=== PATIENT | male | born 1945 | race Caucasian/White ===

== ENCOUNTER 2024-06-27 10:08 | Emergency (ER) | payer MEDICARE ==
[2024-06-27 10:16] VITALS: RESP 18
--- NOTE | 2024-06-27 10:42 | XR ---
Left foot. HISTORY: Pain COMPARISON: None TECHNIQUE: 3 views left foot were obtained. FINDINGS: There is no fracture, dislocation, intraosseous or intra-articular abnormality. There is no radiopaqu e foreign body or abnormal soft tissue calcification.. IMPRESSION: No significant abnormality seen. [facility], Workstation: [facility], 06/27/2024 10:40 AM
--- NOTE | 2024-06-27 11:05 | ED ---
Lower Extremity Injury HPI - General Chief Complaint: Extremity Injury, Lower Stated Complaint: left big toe pain Time Seen by Provider: 06/27/24 10:17 Source: patient, RN notes reviewed Mode of arrival: ambulatory Limitations: no limitations - History of Present Illness Initial Comments: 79-year-old male presents emergency department complaint of left first digit toe pain. Patient states that he is a candidate in which he stubbed it, falling on it to get his foot up he states that he feels like he may have broke his toe. He states there are some redness denies any open wounds lacerations no fevers chills no other complaints. - Related Data Previous Rx's Medication Instructions Recorded Indomethacin [Indocin] 50 mg PO TID #30 capsule 06/27/24 Allergies Allergy/AdvReac Type Severity Reaction Status Date / Time No Known Allergies Allergy Verified 06/27/24 10:16 Review of Systems ROS Statement: Those systems with pertinent positive or pertinent negative responses have been documented in the HPI. ROS Other: All systems not noted in ROS Statement are negative. Past Medical History Past Medical History: Diabetes Mellitus History of Any Multi-Drug Resistant Organisms: None Reported Past Surgical History: Heart Catheterization Past Psychological History: No Psychological Hx Reported Smoking Status: Never smoker Past Alcohol Use History: None Reported Past Drug Use History: None Reported General Exam Limitations: no limitations General appearance: alert, in no apparent distress Head exam: Present: atraumatic, normocephalic, normal inspection Eye exam: Present: normal appearance, PERRL, EOMI. Absent: scleral icterus, conjunctival injection, periorbital swelling Respiratory exam: Present: normal lung sounds bilaterally. Absent: respiratory distress, wheezes, rales, rhonchi, stridor Cardiovascular Exam: Present: regular rate, normal rhythm, normal heart sounds. Absent: systolic murmur, diastolic murmur, rubs, gallop, clicks Extremities exam: Present: other (Left foot first digit there is mild tenderness from the MTP interphalangeal joint with erythema without open lesions or sores) Course Vital Signs 06/27/24 10:13 Temperature 97.8 F Pulse Rate 60 Respiratory 18 Rate Blood Pressure 136/65 O2 Sat by Pulse 94 L Oximetry Medical Decision Making - Medical Decision Making Was pt. sent in by a medical professional or institution (, PA, DUCT LAYER HELPER, urgent care, hospital, or penitentiary...) When possible be specific @ -No Did you speak to anyone other than the patient for history (EMS, parent, family, police, friend...)? What history was obtained from this source @ -No Did you review nursing and triage notes (agree or disagree)? Why? @ -I reviewed and agree with nursing and triage notes Were old charts reviewed (outside hosp., previous admission, EMS record, old EKG, old radiological studies, urgent care reports/EKG's, penitentiary records)? Report findings @ -No old charts were reviewed Differential Diagnosis (chest pain, altered mental status, abdominal pain women, abdominal pain men, vaginal bleeding, weakness, fever, dyspnea, syncope, headache, dizziness, GI bleed, back pain, seizure, CVA, palpatations, mental health, musculoskeletal)? @ -Gout, toe contusion, cellulitis, toe fracture EKG interpreted by me (3pts min.). @ -None X-rays interpreted by me (1pt min.). @ -X-ray left foot negative for acute osseous abnormality CT interpreted by me (1pt min.). @ -None done U/S interpreted by me (1pt. min.). @ -None done What testing was considered but not performed or refused? (CT, X-rays, U/S, labs)? Why? @ -None What meds were considered but not given or refused? Why? @ -None Did you discuss the management of the patient with other professionals (cari harper i.e. , PA, DUCT LAYER HELPER, lab, RT, psych nurse, child welfare social worker, inseam leveler, teacher, family preservation officer, welfare case worker)? Give summary @ -No Was smoking cessation discussed for >3mins.? @ -No Was critical care preformed (if so, how long)? @ -No Were there social determinants of health that impacted care today? How? (Homelessness, low income, unemployed, alcoholism, drug addiction, transportation, low edu. Level, literacy, decrease access to med. care, long-term, rehab)? @ -No Was there de-escalation of care discussed even if they declined (Discuss DNR or withdrawal of care, Hospice)? DNR status @ -No What co-morbidities impacted this encounter? (DM, HTN, Smoking, COPD, CAD, Cancer, CVA, ARF, Chemo, Hep., AIDS, mental health diagnosis, sleep apnea, morbid obesity)? @ -None Was patient admitted / discharged? Hospital course, mention meds given and route, prescriptions, significant lab abnormalities, going to OR and other pertinent info. @ -Discharge patient has tenderness with mild erythema to the left first digit concerning for gout versus trauma there is no obvious signs of infection at this time we discussed return parameters patient was treated with anti- inflammatories. Undiagnosed new problem with uncertain prognosis? @ -No Drug Therapy requiring intensive monitoring for toxicity (Heparin, Nitro, Insulin, Cardizem)? @ -No Were any procedures done? @ -No Diagnosis/symptom? @ -Toe pain Acute, or Chronic, or Acute on Chronic? @ -Acute Uncomplicated (without systemic symptoms) or Complicated (systemic symptoms)? @ -Uncomplicated Side effects of treatment? @ -No Exacerbation, Progression, or Severe Exacerbation? @ -No Poses a threat to life or bodily function? How? (Chest pain, [place], [place], pneumonia, PE, COPD, DKA, ARF, appy, cholecystitis, CVA, Diverticulitis, Homicidal, Suicidal, threat to staff... and all critical care pts) @ -No Disposition Clinical Impression: Toe pain, left Disposition: HOME SELF-CARE Condition: Stable Instructions (If sedation given, give patient instructions): Swollen Joint (ED) Additional Instructions: Please return to the Emergency Department if symptoms worsen or any other concerns. Prescriptions: Indomethacin [Indocin] 50 mg PO TID #30 capsule Is patient prescribed a controlled substance at d/c from ED?: No Referrals: None,Stated [Primary Care Provider] - 1-2 days Time of Disposition: 11:05
[2024-06-27 11:40] VITALS: BP 95/49; PULSE 58; TEMP 97.9
== END 2024-06-27 12:04 | disposition home or self-care (01) ==
LOC: EC 10:08
DX: M79.675 Pain in left toe(s) (principal)
CPT/HCPCS: 99283

== ENCOUNTER 2024-06-30 08:29 | Observation (INO) | payer MEDICARE ==
--- NOTE | 2024-06-30 09:12 | ED ---
General Adult HPI - General Chief complaint: Anxiety Stated complaint: Anxiety Time Seen by Provider: 06/30/24 08:40 Source: patient Mode of arrival: ambulatory Limitations: no limitations - History of Present Illness Initial comments: 79-year-old male who presents to the emergency department with chest pressure and shortness of breath. States he feels anxious because he cannot catch his breath. Reports 2 palpitations. Symptoms are worse when ambulating and exerting himself. He does have a history of hypertension, hyperlipidemia and [place]. He has had a prescription for an inhaler however he started using it a week ago before he came to [facility] to visit his daughter. He is concerned his symptoms may be related to use of this inhaler as he has been using it every 3 hours not realizing that the instructions are to take every 6 hours. He also admits to a cough and congestion. No fevers. No sick contacts with similar symptoms. Brittany cannon is from [place] and recently traveled to the area to visit his daughter for [facility]. Does admit to a history of coronary disease. Patient had a heart cath with balloon angiography 3 weeks ago in [place]. Has follow-up in September. He denies any calf pain or swelling. No history of DVT or PE. No history of heart failure. Denies nausea vomiting. No other alleviating, precipitating or modifying factors - Related Data Home Medications Medication Instructions Recorded Confirmed Acetaminophen Tab [Tylenol] 650 mg PO Q6H PRN 06/30/24 06/30/24 Albuterol Inhaler [Ventolin Hfa 2 puff INHALATION RT-QID PRN 06/30/24 06/30/24 Inhaler] Atorvastatin [Lipitor] 80 mg PO DAILY 06/30/24 06/30/24 Clopidogrel [Plavix] 75 mg PO DAILY 06/30/24 06/30/24 Fluticasone/Vilanterol [Breo 1 puff INHALATION RT-DAILY 06/30/24 06/30/24 Ellipta 200-25 Mcg Inhaler] Glimepiride [Amaryl] 1 mg PO DAILY 06/30/24 06/30/24 Isosorbide Mononitrate ER [Imdur] 30 mg PO DAILY 06/30/24 06/30/24 Losartan [Cozaar] 50 mg PO BID 06/30/24 06/30/24 Metoprolol Tartrate [Lopressor] 100 mg PO BID 06/30/24 06/30/24 Multivit-Minerals/FA/Lycopene 1 tab PO DAILY 06/30/24 06/30/24 [One-A-Day Men's 50 Plus Tablet] Psyllium Husk [Fiber Capsule] 0.8 gm PO BID 06/30/24 06/30/24 Tamsulosin [Flomax] 0.4 mg PO DAILY 06/30/24 06/30/24 hydroCHLOROthiazide [Hydrodiuril] 50 mg PO DAILY 06/30/24 06/30/24 metFORMIN HCL [Glucophage] 500 mg PO BID 06/30/24 06/30/24 Allergies Allergy/AdvReac Type Severity Reaction Status Date / Time No Known Allergies Allergy Verified 06/30/24 13:08 Review of Systems ROS Statement: Those systems with pertinent positive or pertinent negative responses have been documented in the HPI. ROS Other: All systems not noted in ROS Statement are negative. Past Medical History Past Medical History: Coronary Artery Disease (CAD), Chest Pain / Angina, COPD, Diabetes Mellitus, Hyperlipidemia, Hypertension History of Any Multi-Drug Resistant Organisms: None Reported Past Surgical History: Heart Catheterization Past Psychological History: No Psychological Hx Reported Smoking Status: Never smoker Past Alcohol Use History: None Reported Past Drug Use History: None Reported General Exam Limitations: no limitations General appearance: alert, in no apparent distress Head exam: Present: atraumatic, normocephalic, normal inspection Eye exam: Present: normal appearance, PERRL, EOMI. Absent: scleral icterus, conjunctival injection, periorbital swelling ENT exam: Present: normal exam, mucous membranes moist Neck exam: Present: normal inspection. Absent: tenderness, meningismus, lymphadenopathy Respiratory exam: Present: rales. Absent: respiratory distress, wheezes, rhonchi, stridor Cardiovascular Exam: Present: regular rate, normal rhythm, normal heart sounds. Absent: systolic murmur, diastolic murmur, rubs, gallop, clicks GI/Abdominal exam: Present: soft, normal bowel sounds. Absent: distended, tenderness, guarding, rebound, rigid Extremities exam: Present: normal inspection, full ROM, normal capillary refill. Absent: tenderness, pedal edema, joint swelling, calf tenderness Back exam: Present: normal inspection Neurological exam: Present: alert, oriented X3, CN II-XII intact Psychiatric exam: Present: normal affect, normal mood Skin exam: Present: warm, dry, intact, normal color. Absent: rash Course Vital Signs 06/30/24 06/30/24 06/30/24 08:39 08:50 14:35 Temperature 98 F Pulse Rate 63 62 Pulse Rate [ 60 Pulse Oximetery ] Respiratory 22 22 Rate Blood Pressure 159/68 146/70 O2 Sat by Pulse 91 L 94 L Oximetry 06/30/24 06/30/24 06/30/24 18:18 18:19 20:52 Temperature 98.0 F 98.0 F 98.2 F Pulse Rate 66 69 Pulse Rate [ 66 Pulse Oximetery ] Respiratory 20 20 20 Rate Blood Pressure 142/73 126/67 O2 Sat by Pulse 95 95 98 Oximetry Medical Decision Making - Medical Decision Making Was pt. sent in by a medical professional or institution (, PA, REGISTERED DIETICIAN, urgent c are, hospital, or longterm...) When possible be specific @ -No Did you speak to anyone other than the patient for history (EMS, parent, family, police, friend...)? What history was obtained from this source @ -No Did you review nursing and triage notes (agree or disagree)? Why? @ -I reviewed and agree with nursing and triage notes Were old charts reviewed (outside hosp., previous admission, EMS record, old EKG, old radiological studies, urgent care reports/EKG's, longterm records)? Report findings @ -No old charts were reviewed Differential Diagnosis (chest pain, altered mental status, abdominal pain women, abdominal pain men, vaginal bleeding, weakness, fever, dyspnea, syncope, headache, dizziness, GI bleed, back pain, seizure, CVA, palpatations, mental health, musculoskeletal)? @ -Differential Dyspnea: Coronary syndrome, arrhythmia, tamponade, asthma, COPD, pulmonary embolism, pneumonia, pneumothorax, pulmonary effusion, anaphylaxis, diabetic ketoacidosis, flailed chest, pulmonary contusion, diaphragmatic rupture, anemia, neuromuscular, this is not meant to be an all-inclusive list. EKG interpreted by me (3pts min.). @ -Yes and demonstrates sinus rhythm with a rate of 60. MS interval 147. QRS 155. QTc of 443. Right bundle branch block. Left anterior fascicular block. No acute ST segment elevation X-rays interpreted by me (1pt min.). @ -Yes which demonstrates signs of congestive heart failure CT interpreted by me (1pt min.). @ -Yes which does not demonstrate a PE U/S interpreted by me (1pt. min.). @ -None done What testing was considered but not performed or refused? (CT, X-rays, U/S, labs)? Why? @ -None What meds were considered but not given or refused? Why? @ -None Did you discuss the management of the patient with other professionals (professionals i.e. , PA, REGISTERED DIETICIAN, lab, RT, psych nurse, psychiatric social worker supervisor, poultry tender, teacher, mortgage loan officer originator, gearcase assembler)? Give summary @ -Spoke with [facility] who does accept the admission Was smoking cessation discussed for >3mins.? @ -No Was critical care preformed (if so, how long)? @ -35 minutes for heparinization of the patient Were there social determinants of health that impacted care today? How? (Homelessness, low income, unemployed, alcoholism, drug addiction, transportation, low edu. Level, literacy, decrease access to med. care, snf, rehab)? @ -Patient lives in [place] and is only visiting his daughter Was there de-escalation of care discussed even if they declined (Discuss DNR or withdrawal of care, Hospice)? DNR status @ -No What co-morbidities impacted this encounter? (DM, HTN, Smoking, COPD, CAD, Cancer, CVA, ARF, Chemo, Hep., AIDS, mental health diagnosis, sleep apnea, morbid obesity)? @ -Coronary artery disease, COPD Was patient admitted / discharged? Hospital course, mention meds given and route, prescriptions, significant lab abnormalities, going to OR and other pertinent info. @ -Upon arrival patient seen and evaluated in bed 16. Thorough history and physical exam was performed. IV access was established. Laboratory studies are conducted. Patient placed on continuous pulse ox and cardiac monitoring. Twelve-lead EKG was performed. Laboratory studies reveal an elevated D-dimer for which the patient sent for CTA. This does not demonstrate a PE. Patient does have an elevated troponin. I do feel that the patient should be admitted in order to trend his troponins and obtain an echo. I will request the records from [facility]. Patient was agreeable to admission. I spoke with [facility] who agreed to admit the patient. He is heparinized. Undiagnosed new problem with uncertain prognosis? @ -Yes Drug Therapy requiring intensive monitoring for toxicity (Heparin, Nitro, Insulin, Cardizem)? @ -Heparin Were any procedures done? @ -No Diagnosis/symptom? @ -Acute respiratory insufficiency, elevated troponin, status post heart cath with balloon angiography, acute heart failure Acute, or Chronic, or Acute on Chronic? @ -Acute Uncomplicated (without systemic symptoms) or Complicated (systemic symptoms)? @ -Complicated Side effects of treatment? @ -No Exacerbation, Progression, or Severe Exacerbation? @ -No Poses a threat to life or bodily function? How? (Chest pain, [place], [place], pneumonia, PE, COPD, DKA, ARF, appy, cholecystitis, CVA, Diverticulitis, Homicidal, Suicidal, threat to staff... and all critical care pts) @ -Yes this patient has markedly elevated troponin - Lab Data Result diagrams: 06/30/24 09:34 06/30/24 09:34 Lab Results 06/30/24 06/30/24 06/30/24 Range/Units 09:34 09:34 09:34 WBC 14.57 H (4.50-10.00) 10*3/uL RBC 4.39 L (4.40-5.60) 10*6/uL Hgb 13.5 (13.0-17.0) g/dL Hct 40.0 (39.6-50.0) % MCV 91.1 (80.0-97.0) fL MCH 30.8 (27.0-32.0) pg MCHC 33.8 (32.0-37.0) g/dL Plt Count 253 (140-440) 10*3/uL MPV 10.1 (9.5-12.2) fL Immature Gran % (Auto) 0.7 % Neutrophils % 75.6 % Lymphocytes % 13.0 % Monocytes % 8.7 % Eosinophils % 1.2 % Basophils % 0.8 % Immature Gran # 0.10 H (0.00-0.04) 10*3/uL Neutrophils # 11.02 H (1.80-7.70) 10*3/uL Lymphocytes # 1.90 (0.90-5.00) 10*3/uL Monocytes # 1.27 H (0.20-1.00) 10*3/uL Eosinophils # 0.17 (0.04-0.35) 10*3/uL Basophils # 0.11 H (0.00-0.10) 10*3/uL PT 11.5 (10.0-12.5) sec INR 1.0 (<1.2) APTT 25.9 (22.0-30.0) sec D-Dimer 1.54 H (<0.60) mg/L FEU Sodium 141 (137-145) mmol/L Potassium 4.2 (3.5-5.1) mmol/L Chloride 102 (98-107) mmol/L Carbon Dioxide 24 (22-30) mmol/L Anion Gap 15 mmol/L BUN 22 H (9-20) mg/dL Creatinine 0.67 (0.66-1.25) mg/dL Est GFR (CKD-EPI)AfAm >90 (>60 ml/min/1.73 sqM) Est GFR (CKD-EPI)NonAf >90 (>60 ml/min/1.73 sqM) Glucose 138 H (74-99) mg/dL Calcium 9.6 (8.4-10.2) mg/dL Magnesium 1.5 L (1.6-2.3) mg/dL Total Bilirubin 0.9 (0.2-1.3) mg/dL AST 42 (17-59) U/L ALT 40 (4-49) U/L Alkaline Phosphatase 127 H (38-126) U/L Troponin I (0.000-0.034) ng/mL NT-Pro-B Natriuret Pep 3860 pg/mL Total Protein 7.3 (6.3-8.2) g/dL Albumin 3.9 (3.5-5.0) g/dL 06/30/24 Range/Units 09:34 WBC (4.50-10.00) 10*3/uL RBC (4.40-5.60) 10*6/uL Hgb (13.0-17.0) g/dL Hct (39.6-50.0) % MCV (80.0-97.0) fL MCH (27.0-32.0) pg MCHC (32.0-37.0) g/dL Plt Count (140-440) 10*3/uL MPV (9.5-12.2) fL Immature Gran % (Auto) % Neutrophils % % Lymphocytes % % Monocytes % % Eosinophils % % Basophils % % Immature Gran # (0.00-0.04) 10*3/uL Neutrophils # (1.80-7.70) 10*3/uL Lymphocytes # (0.90-5.00) 10*3/uL Monocytes # (0.20-1.00) 10*3/uL Eosinophils # (0.04-0.35) 10*3/uL Basophils # (0.00-0.10) 10*3/uL PT (10.0-12.5) sec INR (<1.2) APTT (22.0-30.0) sec D-Dimer (<0.60) mg/L FEU Sodium (137-145) mmol/L Potassium (3.5-5.1) mmol/L Chloride (98-107) mmol/L Carbon Dioxide (22-30) mmol/L Anion Gap mmol/L BUN (9-20) mg/dL Creatinine (0.66-1.25) mg/dL Est GFR (CKD-EPI)AfAm (>60 ml/min/1.73 sqM) Est GFR (CKD-EPI)NonAf (>60 ml/min/1.73 sqM) Glucose (74-99) mg/dL Calcium (8.4-10.2) mg/dL Magnesium (1.6-2.3) mg/dL Total Bilirubin (0.2-1.3) mg/dL AST (17-59) U/L ALT (4-49) U/L Alkaline Phosphatase (38-126) U/L Troponin I 0.538 H* (0.000-0.034) ng/mL NT-Pro-B Natriuret Pep pg/mL Total Protein (6.3-8.2) g/dL Albumin (3.5-5.0) g/dL Disposition Clinical Impression: Chest pain, Elevated troponin, CHF exacerbation Disposition: ADMITTED IP TO THIS HOSP Condition: Stable Is patient prescribed a controlled substance at d/c from ED?: No Time of Disposition: 12:21 Decision to Admit Reason: Admit from EC Decision Date: 06/30/24 Decision Time: 12:21
[2024-06-30 09:42] LABS: Basophils # (A) 0.11 10*3/uL (0.00-0.10); Basophils % (A) 0.8 %; Eosinophils # (A) 0.17 10*3/uL (0.04-0.35); Eosinophils % (A) 1.2 %; HGB 13.5 g/dL (13.0-17.0); MCH 30.8 pg (27.0-32.0); MCHC 33.8 g/dL (32.0-37.0); MCV 91.1 fL (80.0-97.0); Mean Platelet Volume 10.1 fL (9.5-12.2); Monocytes # (A) 1.27 10*3/uL (0.20-1.00); Monocytes % (A) 8.7 %; Neutrophils # (A) 11.02 10*3/uL (1.80-7.70); Neutrophils % (A) 75.6 %; Platelet Count 253 10*3/uL (140-440); RBC 4.39 10*6/uL (4.40-5.60); RDW 14.3 % (11.5-14.5); WBC 14.57 10*3/uL (4.50-10.00)
--- NOTE | 2024-06-30 09:50 | XR ---
EXAMINATION TYPE: XR chest 2V DATE OF EXAM: 06/30/2024 9:45 AM COMPARISON: None TECHNIQUE: XR chest 2V Frontal and lateral views of the chest. CLINICAL INDICATION:Male, 79 years old with history of Chest Pain; FINDINGS: Lungs/Pleura: There is no evidence of pleural effusion, focal consolidation, or pneumothorax. Hyperi nflation and flattening of the hemidiaphragms. Pulmonary vascularity: Pulmonary vascular congestion. Heart/mediastinum: Cardiomediastinal silhouette is enlarged. Atherosclerotic calcifications are seen in the aorta. Musculoskeletal: Multiple level degenerative disc disease changes seen throughout the spine. IMPRESSION: 1. Cardiomegaly and mild pulmonary vascular congestion. Correlate with BNP for congestive heart fail ure. 2. COPD changes. [facility], , 06/30/2024 9:48 AM
[2024-06-30 09:55] LABS: ALT 40 U/L (4-49); AST 42 U/L (17-59); African American GFR (CKD) >90 (>60 ml/min/1.73 sqM); Albumin 3.9 g/dL (3.5-5.0); Alkaline Phosphatase 127 U/L (38-126); Anion Gap 15 mmol/L; Blood Urea Nitrogen 22 mg/dL (9-20); Calcium 9.6 mg/dL (8.4-10.2); Carbon Dioxide 24 mmol/L (22-30); Chloride 102 mmol/L (98-107); Glucose 138 mg/dL (74-99); Magnesium 1.5 mg/dL (1.6-2.3); Non-African American GFR(CKD) >90 (>60 ml/min/1.73 sqM); Potassium 4.2 mmol/L (3.5-5.1); Sodium 141 mmol/L (137-145); Total Bilirubin 0.9 mg/dL (0.2-1.3); Total Protein 7.3 g/dL (6.3-8.2)
[2024-06-30 10:03] LABS: NT-Pro-B-Type Natriuretic Pept 3860 pg/mL
[2024-06-30 10:24] LABS: Partial Thromboplastin Time 25.9 sec (22.0-30.0); Prothrombin Time 11.5 sec (10.0-12.5)
--- NOTE | 2024-06-30 11:36 | CT ---
EXAMINATION TYPE: CT chest angio for PE CT DLP: 360.3 mGycm, Automated exposure control for dose reduction was used. DATE OF EXAM: 06/30/2024 11:25 AM COMPARISON: Chest radiograph from same day. CLINICAL INDICATION:Male, 79 years old with history of sob, recent travel, high d-dimer; SOB, ANXIETY , ELEVATED D-DIMER R/O PE. TECHNIQUE/CONTRAST: CTA scan of the thorax is performed with IV Contrast, patient injected with 85mL mL of Isovue 370, pu lmonary embolism protocol. MIP images are created and reviewed. FINDINGS: Pulmonary Artery: There is no evidence for a filling defect within the pulmonary vasculature to sugge st acute pulmonary embolism. The pulmonary artery is of normal size. Lungs/Pleura: Small bilateral pleural effusions with associated compressive atelectasis. Mild to mode rate centrilobular emphysematous changes. No focal consolidation. Airway: Large airways are patent. Heart: Cardiomegaly is demonstrated.No pericardial effusion. Moderate coronary artery calcifications present. Aortic valvular and mitral annulus calcifications. Vasculature: No evidence of aortic aneurysm. Atherosclerotic calcification of the aorta and its branc hes. Mediastinum: Enlarged right hilar lymph node measuring 1.1 cm. Multiple enlarged mediastinal lymph no joselito including a subcarinal lymph node measuring up to 1.5 cm and a left paratracheal lymph node measu ring up to 1.7 cm. Musculoskeletal: No acute osseous abnormalities. Remote healed right-sided rib fractures. Multilevel degenerative disc disease. DISH of the thoracic spine. Soft Tissues: Bilateral gynecomastia. Lower neck: No significant findings. Upper Abdomen: Nonspecific thickening of the left adrenal gland which may represent adrenal hyperplas ia. No follow-up recommended. Partial visualization of large left renal superior pole appearing cyst measuring at least 10.4 cm. No follow-up recommended. IMPRESSION: 1. No evidence of pulmonary embolism. 2. Small bilateral pleural effusions with associated atelectasis. 3. Nonspecific mediastinal and left hilar adenopathy. Possibly reactive. 4. Mild to moderate COPD changes. [facility], , 06/30/2024 11:34 AM
[2024-06-30] MEDS ORDERED: NALOXONE 0.4 MG/ML 1 ML VIAL IV PRN (12:21)
[2024-06-30] MEDS ORDERED: HEPARIN SODIUM 1,000 UN/ML (10ML VL) IV PRN (12:28)
[2024-06-30] MEDS: FUROSEMIDE 10 MG/ML 4 ML VIAL IV STA (12:56)
[2024-06-30] MEDS: HEPARIN SOD,PORK IN 0.45% NACL 25,000 UNIT in 0.45% NACL 1 250ML.BAG IV SCH (12:59)
[2024-06-30] MEDS: HEPARIN SODIUM 1,000 UN/ML (10ML VL) IV ONE (12:59)
[2024-06-30] MEDS ORDERED: ACETAMINOPHEN TAB 325 MG TAB PO PRN (13:36)
[2024-06-30] MEDS ORDERED: ALBUTEROL NEBULIZED 2.5 MG/3 ML INHALATION PRN (13:36)
[2024-06-30] MEDS: ASPIRIN 81 MG PO STA (14:33)
[2024-06-30 15:35] LABS: Influenza A Not Detected (Not Detectd); Influenza B Not Detected (Not Detectd); RSV Not Detected (Not Detectd)
--- NOTE | 2024-06-30 15:55 | CA ---
Transthoracic Echo Report Name: Michoacano Mota Age: 79 Gender: M : 1945 Exam Date: 06/30/2024 14:14 Exam Location: [facility] Ht (in): 63 Wt (lb): 153 Ordering Physician: Debbie Reina DO Attending/Referring Phys: [id number], Latosha Gis Professor Eloy Del Rio, RDCS Procedure CPT: Indications: Heart failure Cardiac Hx: Technical Quality: Good Contrast 1: Total Dose (mL): Contrast 2: Total Dose (mL): MEASUREMENTS (Male / Female) Normal Values 2D ECHO LV Diastolic Diameter PLAX 5.7 cm 4.2 - 5.9 / 3.9 - 5.3 cm LV Systolic Diameter PLAX 3.6 cm IVS Diastolic Thickness 1.0 cm 0.6 - 1.0 / 0.6 - 0.9 cm LVPW Diastolic Thickness 1.0 cm 0.6 - 1.0 / 0.6 - 0.9 cm LV Relative Wall Thickness 0.3 LVOT Diameter 1.7 cm LA Systolic Diameter LX 5.2 cm 3.0 - 4.0 / 2.7 - 3.8 cm LV Diastolic Volume MOD BP 111.0 cm??? 67 - 155 / 56 - 104 cm??? LV Systolic Volume MOD BP 47.7 cm??? 22 - 58 / 19 - 49 cm??? LV Ejection Fraction MOD BP 57.0 % >= 55 % LV Cardiac Index MOD BP 2137.5 cm???/min???m??? LV Diastolic Volume MOD 4C 87.1 cm??? LV Systolic Volume MOD 4C 37.7 cm??? LV Ejection Fraction MOD 4C 56.7 % LV Cardiac Index MOD 4C 1670.1 cm???/min???m??? LV Diastolic Length 4C 7.6 cm LV Systolic Length 4C 6.4 cm LV Diastolic Volume MOD 2C 133.2 cm??? LV Systolic Volume MOD 2C 51.0 cm??? LV Ejection Fraction MOD 2C 61.7 % LV Cardiac Index MOD 2C 2778.4 cm???/min???m??? LV Diastolic Length 2C 8.1 cm LV Systolic Length 2C 7.6 cm LA Volume 88.9 cm??? 18 - 58 / 22 - 52 cm??? LA Volume Index 50.1 cm???/m??? 16 - 28 cm???/m??? DOPPLER AV Peak Velocity 316.5 cm/s AV Peak Gradient 40.1 mmHg AV Mean Velocity 239.9 cm/s AV Mean Gradient 25.0 mmHg AV Velocity Time Integral 73.5 cm AI Peak Velocity 376.7 cm/s AI Peak Gradient 56.8 mmHg AI Pressure Half Time 556.1 ms MV Peak Velocity 150.3 cm/s MV Peak Gradient 9.0 mmHg MV Mean Velocity 99.2 cm/s MV Mean Gradient 4.5 mmHg MV Velocity Time Integral 52.7 cm MV Area PHT 2.5 cm??? Mitral E Point Velocity 145.6 cm/s Mitral A Point Velocity 133.7 cm/s Mitral E to A Ratio 1.1 MV Deceleration Time 288.8 ms TR Peak Velocity 413.3 cm/s TR Peak Gradient 68.3 mmHg Right Atrial Pressure 5.0 mmHg Pulmonary Artery Systolic Pressu 73.3 mmHg Right Ventricular Systolic Press 73.3 mmHg FINDINGS Left Ventricle Left ventricular ejection fraction is estimated at 55 to 60 %. Normal left ventricular systolic function with no obvious regional wall motion abnormalities. Left ventricular wall thickness normal. Right Ventricle Normal right ventricular size.severe pulmonary hypertension. Right ventricular systolic pressure estimated at 73 mm hg. Right Atrium Mild right atrial dilatation. Left Atrium Severely increased left atrial diameter. Severely increased left atrial volume. Mildly increased left atrial area. Mitral Valve Severe mitral annular calcification. Mitral valve thickened. Mild mitral stenosis. Mild to moderate mitral regurgitation. Aortic Valve Diffuse thickening of the aortic valve cusps with reduced excursion. Moderate aortic stenosis with a peak gradient of 40 mmHg and a mean gradient of 25 mmHg. Mild to moderate aortic regurgitation. Tricuspid Valve Structurally normal tricuspid valve. No tricuspid stenosis. [id number] tricuspid regurgitation. Pulmonic Valve Structurally normal pulmonic valve. No pulmonic stenosis. Trace pulmonic regurgitation. Pericardium No pericardial effusion. Aorta Normal size aortic root and proximal ascending aorta. CONCLUSIONS 1. Normal left ventricular size and systolic function 2. Mild to moderate mitral regurgitation with mild mitral stenosis 3. Moderate aortic stenosis and mild to moderate aortic regurgitation 4. Mild to moderate tricuspid regurgitation with severe pulmonary hypertension Previewed by: Dr. Melissa Anderson MD (Electronically Signed) Final Date: 30 June 2024 15:54
--- NOTE | 2024-06-30 17:37 | P.HPIM ---
History of Present Illness H&P Date: 06/30/24 History of Presenting Illness: Patient is a very pleasant 79-year-old male with a past medical history of CAD with recent balloon angioplasty 3 weeks ago, valvular heart disease, diastolic heart failure, hypertension, hyperlipidemia, and COPD not home oxygen dependent. Patient presented to the emergency department with a chief complaint of feeling extreme anxiety. Patient reports feeling extremely anxious, short of breath, and reports an intermittent heaviness to his left anterior chest. He denies feeling pain but reports experiencing a strong heaviness. Patient reports he is from [place] and is down here visiting his daughter for Fina. He reports over the past week he has been noticing increased shortness of breath, cough, and congestion. Patient states this morning is when he began to feel the extreme anxiety and heaviness to his left anterior chest so he came to the emergency department for evaluation. Patient denies having any headache, lightheadedness, dizziness, fevers, chills, diaphoresis, palpitations, nausea, vomiting, or experiencing any numbness/tingling/weakness/swelling in his extremities.. Patient states that he has known occlusive coronary artery disease and has been following with Dr. Mccurdy at [place] as well as cardiothoracic surgeon at [facility]. Patient reports undergoing a heart cath 3 weeks ago in which they were only able to do the balloon angioplasty as they had difficulties and were unable to successfully place a stent. Patient reports he was referred to cardio thoracic surgeon at [facility] and even underwent some recent testing including echocardiogram and carotid Dopplers and has a follow up appointment in September for further evaluation and discussion of aortic valve replacement due to stenosis. Upon arrival to our facility, patient underwent evaluation in the emergency department. Vital signs upon arrival show blood pressure 159/68, heart rate 63, respiratory rate 22, temp 98.0 F, and SpO2 of 91% on room air. EKG completed showing sinus mechanism with a right bundle branch block and a noted sinus pause/missed beat 11 with extra P wave noted. Chest x-ray was completed showing cardiomegaly with mild pulmonary vascular congestion and chronic changes of COPD with hyperinflation of the lungs and flattening of diaphragm. Labs completed and reviewed. CBC showing leukocytosis with WBC count of 14.57. Coagulation pr ofile showing elevated D-dimer of 1.54. BMP showing mild prerenal azotemia with BUN of 22 and a blood glucose of 138. Magnesium was low at 1.5. Liver profile was pending elevated alkaline phosphatase at 127. Troponin was elevated at 0.538 with proBNP of 3860. Cepheid 4 Plex viral panel was negative. CTA showing no evidence for pulmonary emboli revealing small bilateral pleural effusions with associated atelectasis and nonspecific mediastinal and left hilar adenopathy, possibly reactive with mild to moderate COPD changes. Patient was given a dose of IV Lasix, started on heparin infusion for treatment of NSTEMI, and admitted under services with consultation to cardiology. Review of systems: Pertinent positives and negatives as discussed in HPI, a complete review of systems was performed and all other systems are negative. Physical exam: Vital signs reviewed and stable. General: Nontoxic, no distress and appears stated age. Derm: Skin warm and dry, normal coloration for ethnicity. Head: Atraumatic, normocephalic and symmetric. Eyes: EOM's intact, no lid lag, and anicteric sclera Mouth: no lip lesions, mucus membranes moist Cardiovascular: regular rate and rhythm with normal S1S2, systolic murmur, positive posterior tibial pulses bilaterally, and cap refill < 2 seconds. Lungs: Respirations even, regular, and unlabored on room air. Lungs CTA bilaterally, no rhonchi, no rales, no wheezing, and no accessory muscle usage. Abdominal: soft, nontender to palpation, no guarding, no appreciable organomegaly Ext: Movement and sensation intact (limited ROM of LUE d/t previous rotator cuff injury/repair). No gross muscle atrophy, no edema, no contractures. Patient with bruising and redness to left great toe (reports recently stubbed toe and underwent x-ray last week which was negative for fracture) Neuro: Speech clear, face symmetrical and CN II-XII grossly intact with no noted focal neuro deficits Psych: Alert and oriented to person, place, time, and situation. Appropriate and pleasant affect. Assessment and Plan of Care: Elevated Troponin, suspect NSTEMI (awaiting transfer records to be obtained from [place] and [facility] to compare previous troponin level prior to heart cath 3 weeks ago) Reports of extreme anxiety with shortness of breath and left-sided chest pressure Known occlusive coronary artery disease Valvular heart disease Mild exacerbation of chronic diastolic heart failure Hypertension Hyperlipidemia -EKG completed showing sinus mechanism with a right bundle branch block and a noted sinus pause/missed beat 11 with extra P waves noted. Discussed EKG with crisis counselor who ruled out further heart block at this time recommending continu ation of metropolol but at a decreased dose from 100 mg twice daily down to 50 mg twice daily. -Continue low intensity heparin infusion with close monitoring of PTT for goal therapeutic range of 45 to 79 seconds. -Cardiology consulted, appreciate further recommendations -Telemetry monitoring -Trend troponins -Cardiac diet, NPO at midnight -Aspirin 324 mg p.o. x 1 dose followed by 81 mg daily -Patient to continue current cardiac medication regimen with atorvastatin 80 mg nightly, Plavix 75 mg daily, hydrochlorothiazide 50 mg daily, isosorbide mononitrate 30 mg daily, losartan 50 mg twice daily, and as stated above reduced dose of metoprolol to 50 mg twice daily. -Echocardiogram -Obtain cardiology and cardiothoracic surgery records from [place] and [facility]. COPD, not in acute exacerbation - Continue Ventolin nebulizer 4 times daily as needed for wheezing/shortness of breath, Symbicort 160-4.5 mcg inhaler 2 puffs twice daily, and provide patient with supplemental oxygen if needed to maintain SpO2 equal to or greater than 90%. Elevated D-dimer -CTA negative for PE Data and imaging reviewed: As stated above in HPI The patient is admitted with an anticipated greater than 2 midnight stay for evaluation of elevated troponin with extreme anxiety, shortness of breath, and left-sided chest pressure CODE STATUS: Full code DVT prophylaxis: Low intensity heparin infusion Discussed with: Patient, ED physician, and crisis counselor Anticipated discharge date: Pending clinical course Anticipated discharge place: Pending clinical course Patient was seen independently by Nurse Practitioner. This document was prepared using [employer] dictation software. Please allow for errors in trim setter helper while rare they do occur. Fabian Moore NP rendered care for this patient independently, reviewed the findings and plan as documented in the note above and agree with plan. I did not physically speak with or examine the patient on this date. Past Medical History Past Medical History: Coronary Artery Disease (CAD), Chest Pain / Angina, COPD, Diabetes Mellitus, Hyperlipidemia, Hypertension History of Any Multi-Drug Resistant Organisms: None Reported Past Surgical History: Heart Catheterization Past Psychological History: No Psychological Hx Reported Smoking Status: Never smoker Past Alcohol Use History: None Reported Past Drug Use History: None Reported Medications and Allergies Home Medications Medication Instructions Recorded Confirmed Type Acetaminophen Tab [Tylenol] 650 mg PO Q6H PRN 06/30/24 06/30/24 History Albuterol Inhaler [Ventolin Hfa 2 puff INHALATION RT-QID PRN 06/30/24 06/30/24 History Inhaler] Atorvastatin [Lipitor] 80 mg PO DAILY 06/30/24 06/30/24 History Clopidogrel [Plavix] 75 mg PO DAILY 06/30/24 06/30/24 History Fluticasone/Vilanterol [Breo 1 puff INHALATION RT-DAILY 06/30/24 06/30/24 History Ellipta 200-25 Mcg Inhaler] Glimepiride [Amaryl] 1 mg PO DAILY 06/30/24 06/30/24 History Isosorbide Mononitrate ER [Imdur] 30 mg PO DAILY 06/30/24 06/30/24 History Losartan [Cozaar] 50 mg PO BID 06/30/24 06/30/24 History Metoprolol Tartrate [Lopressor] 100 mg PO BID 06/30/24 06/30/24 History Multivit-Minerals/FA/Lycopene 1 tab PO DAILY 06/30/24 06/30/24 History [One-A-Day Men's 50 Plus Tablet] Psyllium Husk [Fiber Capsule] 0.8 gm PO BID 06/30/24 06/30/24 History Tamsulosin [Flomax] 0.4 mg PO DAILY 06/30/24 06/30/24 History hydroCHLOROthiazide [Hydrodiuril] 50 mg PO DAILY 06/30/24 06/30/24 History metFORMIN HCL [Glucophage] 500 mg PO BID 06/30/24 06/30/24 History Allergies Allergy/AdvReac Type Severity Reaction Status Date / Time No Known Allergies Allergy Verified 06/30/24 13:08 Physical Exam Vitals: Vital Signs Temp Pulse Pulse Resp BP Pulse Ox 06/30/24 08:50 60 06/30/24 08:39 98 F 63 22 159/68 91 L Intake and Output 06/29/24 06/30/24 06/30/24 22:59 06:59 14:59 Other: Weight 69.4 kg Results CBC & Chem 7: 06/30/24 09:34 06/30/24 09:34 Labs: Abnormal Lab Results - Last 24 Hours (Table) 06/30/24 06/30/24 06/30/24 Range/Units 09:34 09:34 09:34 WBC 14.57 H (4.50-10.00) 10*3/uL RBC 4.39 L (4.40-5.60) 10*6/uL Immature Gran # 0.10 H (0.00-0.04) 10*3/uL Neutrophils # 11.02 H (1.80-7.70) 10*3/uL Monocytes # 1.27 H (0.20-1.00) 10*3/uL Basophils # 0.11 H (0.00-0.10) 10*3/uL D-Dimer 1.54 H (<0.60) mg/L FEU BUN 22 H (9-20) mg/dL Glucose 138 H (74-99) mg/dL Magnesium 1.5 L (1.6-2.3) mg/dL Alkaline Phosphatase 127 H (38-126) U/L Troponin I (0.000-0.034) ng/mL 06/30/24 Range/Units 09:34 WBC (4.50-10.00) 10*3/uL RBC (4.40-5.60) 10*6/uL Immature Gran # (0.00-0.04) 10*3/uL Neutrophils # (1.80-7.70) 10*3/uL Monocytes # (0.20-1.00) 10*3/uL Basophils # (0.00-0.10) 10*3/uL D-Dimer (<0.60) mg/L FEU BUN (9-20) mg/dL Glucose (74-99) mg/dL Magnesium (1.6-2.3) mg/dL Alkaline Phosphatase (38-126) U/L Troponin I 0.538 H* (0.000-0.034) ng/mL
[2024-06-30] MEDS: MAGNESIUM SULFATE-D5W PMX 1 GM in DEXTROSE/WATER 1 100ML.BAG IVPB SCH (18:32)
[2024-06-30] MEDS: SYMBICORT 160-4.5 MCG INHALER INHALATION SCH (19:26)
[2024-06-30] MEDS ORDERED: METOPROLOL TARTRATE 50 MG TAB PO SCH (21:00)
[2024-06-30] MEDS: LOSARTAN 50 MG TAB PO SCH (21:55)
[2024-06-30] MEDS: FUROSEMIDE 10 MG/ML 4 ML VIAL IV SCH (21:55)
[2024-06-30] MEDS: METOPROLOL TARTRATE 50 MG TAB PO SCH (21:55)
[2024-07-01 06:11] LABS: Glucose,Whole Blood 120 mg/dL (70-110)
[2024-07-01 06:31] LABS: Basophils # (A) 0.09 10*3/uL (0.00-0.10); Basophils % (A) 0.7 %; Eosinophils # (A) 0.34 10*3/uL (0.04-0.35); Eosinophils % (A) 2.5 %; HCT 42.1 % (39.6-50.0); HGB 13.8 g/dL (13.0-17.0); Lymphocytes # (A) 1.44 10*3/uL (0.90-5.00); Lymphocytes % (A) 10.6 %; MCH 30.1 pg (27.0-32.0); MCHC 32.8 g/dL (32.0-37.0); MCV 91.9 fL (80.0-97.0); Mean Platelet Volume 10.4 fL (9.5-12.2); Monocytes # (A) 0.85 10*3/uL (0.20-1.00); Monocytes % (A) 6.3 %; Neutrophils # (A) 10.78 10*3/uL (1.80-7.70); Neutrophils % (A) 79.2 %; Platelet Count 263 10*3/uL (140-440); RBC 4.58 10*6/uL (4.40-5.60); RDW 14.6 % (11.5-14.5)
[2024-07-01 06:45] LABS: INR 1.1 (<1.2); Prothrombin Time 11.6 sec (10.0-12.5)
[2024-07-01 06:55] LABS: African American GFR (CKD) 79 (>60 ml/min/1.73 sqM); Anion Gap 12 mmol/L; Blood Urea Nitrogen 31 mg/dL (9-20); Calcium 9.6 mg/dL (8.4-10.2); Carbon Dioxide 32 mmol/L (22-30); Chloride 96 mmol/L (98-107); Glucose 122 mg/dL (74-99); Non-African American GFR(CKD) 68 (>60 ml/min/1.73 sqM); Potassium 3.8 mmol/L (3.5-5.1); Sodium 140 mmol/L (137-145)
[2024-07-01] MEDS: MULTIVITAMINS, THERA 1 EACH TAB PO SCH (08:51)
[2024-07-01] MEDS: CLOPIDOGREL 75 MG TAB PO SCH (08:51)
[2024-07-01] MEDS: ATORVASTATIN 80 MG TAB PO SCH (08:51)
[2024-07-01] MEDS: ASPIRIN 81 MG PO SCH (08:51)
[2024-07-01] MEDS: ISOSORBIDE MONONITRATE ER 30 MG TAB.ER.24H PO SCH (08:51)
[2024-07-01] MEDS: TAMSULOSIN 0.4 MG CAP.ER.24H PO SCH (08:52)
[2024-07-01] MEDS: FUROSEMIDE 20 MG TAB PO SCH (09:18)
[2024-07-01] MEDS: DAPAGLIFLOZIN PROPANEDIOL 10 MG TABLET PO SCH (09:18)
--- NOTE | 2024-07-01 10:56 | P.DS ---
Providers Date of admission: 06/30/24 12:27 Expected date of discharge: 07/01/24 Attending physician: Ambrocio Pascual Consults: 06/30/24 12:21 Consult Physician Urgent Consulting Provider: [facility] Consult Reason/Comments: elevated trop Do you want consulting provider notified?: Yes Primary care physician: Physician Nonstaff Hospital Course: Discharge Diagnosis: Elevated Troponins, flat. Anxiety/panic attack Known occlusive coronary artery disease Valvular heart disease Chronic diastolic heart failure with mild exacerbation Hypertension Hyperlipidemia COPD, not in acute exacerbation. Continue Ventolin inhaler 4 times daily as needed for wheezing/shortness of breath and Symbicort 160-4.5 mcg inhaler 2 puffs twice daily, Elevated D-dimer. CTA negative for PE Hospital Course: Patient is a very pleasant 79-year-old male with a past medical history of CAD with recent balloon angioplasty 3 weeks ago, valvular heart disease, diastolic heart failure, hypertension, hyperlipidemia, and COPD not home oxygen dependent. Patient presented to the emergency department with a chief complaint of feeling extreme anxiety. Patient reports feeling extremely anxious, short of breath, and reports an intermittent heaviness to his left anterior chest. He denies feeling pain but reports experiencing a strong heaviness. Patient reports he is from [place] and is down here visiting his daughter for Fina. He reports over the past week he has been noticing increased shortness of breath, cough, and congestion. Patient states this morning is when he began to feel the extreme anxiety and heaviness to his left anterior chest so he came to the emergency department for evaluation. Patient denies having any headache, lightheadedness, dizziness, fevers, chills, diaphoresis, palpitations, nausea, vomiting, or experiencing any numbness/tingling/weakness/swelling in his extremities.. [facility] reports revealing an abnormal myocardial perfusion SPECT exam and subsequently underwent a left heart catheterization which found severe stenosis in the LAD. Balloon angioplasty and intravascular lithotripsy however unable to complete revascularization due to severe calcification and tortuosity unable to pass catheters into the culprit area. Patient was advised to continue aspirin and antiplatelet therapy with Plavix for 1 month as well as antianginal therapy and beta-blockers, nitrates and statin. Plan was also for patient to be evaluated for TAVR. Upon arrival to our facility, patient underwent evaluation in the emergency department. Vital signs upon arrival show blood pressure 159/68, heart rate 63, respiratory rate 22, temp 98.0 F, and SpO2 of 91% on room air. EKG completed showing sinus mechanism with a right bundle branch block and a noted sinus pause/missed beat 11 with extra P wave noted. Chest x-ray was completed showing cardiomegaly with mild pulmonary vascular congestion and chronic changes of COPD with hyperinflation of the lungs and flattening of diaphragm. Labs completed and reviewed. CBC showing leukocytosis with WBC count of 14.57. Coagulation profile showing elevated D-dimer of 1.54. BMP showing mild prerenal azotemia with BUN of 22 and a blood glucose of 138. Magnesium was low at 1.5. Liver profile was pending elevated alkaline phosphatase at 127. Troponin was elevated at 0.538 with proBNP of 3860. Cepheid 4 Plex viral panel was negative. CTA showing no evidence for pulmonary emboli revealing small bilateral pleural effusions with associated atelectasis and nonspecific mediastinal and left hilar adenopathy, possibly reactive with mild to moderate COPD changes. Patient was given a dose of IV Lasix, started on heparin infusion for treatment of NSTEMI, and admitted under services with consultation to cardiology. Troponins were trended resulting at 0.538, 0.406, 0.446. Echocardiogram was completed showing a preserved EF of 55 to 60% with mild to moderate mitral regurgitation and mild mitral stenosis, moderate aortic stenosis and mild to moderate aortic regurgitation, and mild to moderate tricuspid regurgitation with severe pulmonary hypertension. Patient was evaluated by cardiology, recommending the following medication changes discontinuation of hydrochlorothiazide and increasing Lasix to 40 mg twice daily, increasing metoprolol to 50 mg twice d aily, and adding on Jardiance 10 mg daily. Patient reports full resolution of anxiety, shortness of breath, and left-sided chest pressure. He was cleared from cardiac perspective and medically optimized for discharge at this time. Patient to follow-up outpatient with his primary physician as well as his rate marker upon returning to [place]. Physical exam: Vital signs reviewed and stable. General: Nontoxic, no distress and appears stated age. Derm: Skin warm and dry, normal coloration for ethnicity. Head: Atraumatic, normocephalic and symmetric. Eyes: EOM's intact, no lid lag, and anicteric sclera Mouth: no lip lesions, mucus membranes moist Cardiovascular: regular rate and rhythm with normal S1S2, systolic murmur, positive posterior tibial pulses bilaterally, and cap refill < 2 seconds. Lungs: Respirations even, regular, and unlabored on room air. Lungs CTA bilaterally, no rhonchi, no rales, no wheezing, and no accessory muscle usage. Abdominal: soft, nontender to palpation, no guarding, no appreciable organomegaly Ext: Movement and sensation intact (limited ROM of LUE d/t previous rotator cuff injury/repair). No gross muscle atrophy, no edema, no contractures. Patient with bruising and redness to left great toe (reports recently stubbed toe and underwent x-ray last week which was negative for fracture) Neuro: Speech clear, face symmetrical and CN II-XII grossly intact with no noted focal neuro deficits Psych: Alert and oriented to person, place, time, and situation. Appropriate and pleasant affect. A total of 38 minutes of time were spent preparing this complex discharge summary. Pt was discharged on at 10:56 AM Patient was seen independently by Nurse Practitioner. This document was prepared using [employer] dictation software. Please allow for errors in repair table operator while rare they do occur. Fabian Moore NP rendered care for this patient independently, reviewed the findin gs and plan as documented in the note above. I did not physically speak with or examine the patient on this date. Patient Condition at Discharge: Stable Plan - Discharge Summary Discharge Rx Participant: No New Discharge Prescriptions: New Empagliflozin [Jardiance] 10 mg PO DAILY 30 Days #30 tablet Metoprolol Tartrate [Lopressor] 50 mg PO BID 30 Days #60 tab Aspirin 81 mg PO DAILY 30 Days #30 tab Furosemide [Lasix] 20 mg PO DAILY #30 tab Continue Tamsulosin [Flomax] 0.4 mg PO DAILY metFORMIN HCL [Glucophage] 500 mg PO BID Losartan [Cozaar] 50 mg PO BID Glimepiride [Amaryl] 1 mg PO DAILY Clopidogrel [Plavix] 75 mg PO DAILY Multivit-Minerals/FA/Lycopene [One-A-Day Men's 50 Plus Tablet] 1 tab PO DAILY Isosorbide Mononitrate ER [Imdur] 30 mg PO DAILY Acetaminophen Tab [Tylenol] 650 mg PO Q6H PRN PRN Reason: Pain Psyllium Husk [Fiber Capsule] 0.8 gm PO BID Albuterol Inhaler [Ventolin Hfa Inhaler] 2 puff INHALATION RT-QID PRN PRN Reason: Shortness Of Breath Fluticasone/Vilanterol [Breo Ellipta 200-25 Mcg Inhaler] 1 puff INHALATION RT-DAILY Atorvastatin [Lipitor] 80 mg PO DAILY Discontinued hydroCHLOROthiazide [Hydrodiuril] 50 mg PO DAILY Metoprolol Tartrate [Lopressor] 100 mg PO BID Discharge Medication List Acetaminophen Tab [Tylenol] 650 mg PO Q6H PRN 06/30/24 [History] Albuterol Inhaler [Ventolin Hfa Inhaler] 2 puff INHALATION RT-QID PRN 06/30/24 [History] Atorvastatin [Lipitor] 80 mg PO DAILY 06/30/24 [History] Clopidogrel [Plavix] 75 mg PO DAILY 06/30/24 [History] Fluticasone/Vilanterol [Breo Ellipta 200-25 Mcg Inhaler] 1 puff INHALATION RT- DAILY 06/30/24 [History] Glimepiride [Amaryl] 1 mg PO DAILY 06/30/24 [History] Isosorbide Mononitrate ER [Imdur] 30 mg PO DAILY 06/30/24 [History] Losartan [Cozaar] 50 mg PO BID 06/30/24 [History] Multivit-Minerals/FA/Lycopene [One-A-Day Men's 50 Plus Tablet] 1 tab PO DAILY 06/30/24 [History] Psyllium Husk [Fiber Capsule] 0.8 gm PO BID 06/30/24 [History] Tamsulosin [Flomax] 0.4 mg PO DAILY 06/30/24 [History] metFORMIN HCL [Glucophage] 500 mg PO BID 06/30/24 [History] Aspirin 81 mg PO DAILY 30 Days #30 tab 07/01/24 [Rx] Empagliflozin [Jardiance] 10 mg PO DAILY 30 Days #30 tablet 07/01/24 [Rx] Furosemide [Lasix] 20 mg PO DAILY #30 tab 07/01/24 [Rx] Metoprolol Tartrate [Lopressor] 50 mg PO BID 30 Days #60 tab 07/01/24 [Rx] Patient Instructions/Handouts: Heart Failure (DC) Activity/Diet/Wound Care/Special Instructions: Activity: As tolerated. Take breaks as needed. Diet: Heart healthy and carb consistent diet. Avoid salts, or foods with hidden salts such as canned or boxed foods and frozen dinners. Extra salt makes your heart work harder and traps the fluid in your body for longer. Special Instructions: Take all of your medications as directed and remember to keep all of your doctor's appointments and follow-up as needed. You will need to call and schedule an appointment with your primary doctor and rate marker in [place], it is important to follow-up with your PCP in the next couple days and with your rate marker in 1 week. Thank you for allowing us to participate in your care, it was truly a pleasure having you for our patient!!! Discharge Disposition: HOME SELF-CARE
[2024-07-01 11:28] LABS: Glucose,Whole Blood 229 mg/dL (70-110)
[2024-07-01 12:06] VITALS: BP 102/60; PULSE 68; RESP 18; TEMP 96.9
--- NOTE | 2024-07-01 12:07 | P.CRDCN ---
History of Present Illness Consult date: 07/01/24 Reason for Consult (text): Elevated troponins History of present illness: This is an 79-year-old male patient with past medical history of coronary artery disease, valvular heart disease, diabetes mellitus type 2. We have been asked to evaluate the patient for elevated troponins. Patient gives history that he was at his daughter's 3 weeks ago and developed chest pain went to [facility] for evaluation. He was found to have an abnormal myocardial perfusion SPECT exam and subsequently underwent a left heart catheterization which found severe stenosis in the LAD. Balloon angioplasty and intravascular lithotripsy however unable to complete revascularization due to severe calcification and tortuosity unable to pass catheters into the culprit area. Patient was advised to continue aspirin and antiplatelet therapy with Plavix for 1 month as well as antianginal therapy and beta-blockers, nitrates and statin. Plan was also for patient to be evaluated for TAVR. Patient states that he came into the hospital because he was using his inhalers too much and was feeling very jumpy and anxious like he was having anxiety attacks. He states he was not even able to lay still for 2 days. He states he did have some chest pain when he was having the anxiety attacks. He denies chest pain at the time of this evaluation. Blood pressure 132/63, heart rate 69, pulse ox 93% on room air. 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 -EKG: Sinus rhythm with right bundle branch block. -Chest x-ray: Cardiomegaly with mild pulmonary vascular congestion. COPD. -CTA chest: No pulmonary embolism. Small bilateral pleural effusion with associated atelectasis. Nonspecific mediastinal and left hilar adenopathy. Possibly reactive. Mild to moderate COPD changes. -Laboratory studies: Troponin 0.538, 0.406 and 0.446. proBNP 3860. Alkaline phosphatase 127. Initial magnesium 1.5 and repeat 2. D-dimer 1.54. BUN 31 creatinine 1.03. WBC 14.5 and hemoglobin 13.8. -Home cardiac medications: Aspirin 81 mg daily, atorvastatin 80 mg daily, Plavix 75 mg daily, hydrochlorothiazide 50 mg daily, Lopressor 100 mg twice daily, Imdur 30 mg daily. -Echocardiogram reveals normal left ventricular size and systolic function, mild to moderate mitral regurgitation with mild mitral stenosis, moderate aortic stenosis and mild to moderate aortic regurgitation, mild to moderate tricuspid regurgitation and severe pulmonary hypertension. Review Of Systems: At the time of my exam: CONSTITUTIONAL: Denies fever or chills. HEENT: Denies blurred vision, vision changes, or eye pain. Denies hemoptysis CARDIOVASCULAR: Denies chest pain. Denies orthopnea. Denies PND. Denies palpitations RESPIRATORY: Denies shortness of breath. GASTROINTESTINAL: Denies abdominal pain. Denies nausea or vomiting. HEMATOLOGIC: Denies bleeding disorders. GENITOURINARY: Denies any blood in urine. SKIN: Denies puritis. Denies rash. Physical examination: Gen: This is 79-year-old male in no acute distress. VS: reviewed HEENT: Head is atraumatic, normocephalic. Pupils equal, round. Sclerae is anicteric. NECK: Supple. No JVD. LUNGS: Mild bilateral wheezing. No intercostal retractions. HEART: Regular rate and rhythm. Systolic murmur. ABDOMEN: Soft No tenderness. EXTREMITIES: No pedal edema. No calf tenderness. NEUROLOGICAL: Patient is awake, alert and oriented x3. Assessment: Anxiety attacks COPD exacerbation Acute diastolic heart failure History of coronary artery disease with recent intervention 3 weeks ago with balloon angioplasty of the LAD with intravascular lithotripsy of the LAD Valvular heart disease with moderate aortic stenosis Diabetes mellitus type 2 Plan: Resume patient's home cardiac medications with the following changes and patient is cleared for discharge Discontinue hydrochlorothiazide and start patient on Lasix 20 mg daily Decrease Lopressor to 50 mg twice daily Add Farxiga or Jardiance Discontinue heparin drip Patient instructed to make an appointment with his primary paint booth operator, Dr. Mccurdy, in 1 to 2 weeks If patient is feeling well by this afternoon, he is cleared for discharge home. Thank you kindly for this consultation. Nurse practitioner note has been reviewed, I agree with documented findings and plan of care. Patient was seen and examined. Past Medical History Past Medical History: Coronary Artery Disease (CAD), Chest Pain / Angina, COPD, Diabetes Mellitus, Hyperlipidemia, Hypertension History of Any Multi-Drug Resistant Organisms: None Reported Past Surgical History: Heart Catheterization Past Psychological History: No Psychological Hx Reported Smoking Status: Never smoker Past Alcohol Use History: None Reported Past Drug Use History: None Reported Medications and Allergies Home Medications Medication Instructions Recorded Confirmed Type Acetaminophen Tab [Tylenol] 650 mg PO Q6H PRN 04/23/25 04/23/25 History Albuterol Inhaler [Ventolin Hfa 2 puff INHALATION RT-QID PRN 06/30/24 06/30/24 History Inhaler] Atorvastatin [Lipitor] 80 mg PO DAILY 06/30/24 06/30/24 History Clopidogrel [Plavix] 75 mg PO DAILY 06/30/24 06/30/24 History Fluticasone/Vilanterol [Breo 1 puff INHALATION RT-DAILY 06/30/24 06/30/24 History Ellipta 200-25 Mcg Inhaler] Glimepiride [Amaryl] 1 mg PO DAILY 06/30/24 06/30/24 History Isosorbide Mononitrate ER [Imdur] 30 mg PO DAILY 06/30/24 06/30/24 History Losartan [Cozaar] 50 mg PO BID 06/30/24 06/30/24 History Multivit-Minerals/FA/Lycopene 1 tab PO DAILY 06/30/24 06/30/24 History [One-A-Day Men's 50 Plus Tablet] Psyllium Husk [Fiber Capsule] 0.8 gm PO BID 06/30/24 06/30/24 History Tamsulosin [Flomax] 0.4 mg PO DAILY 06/30/24 06/30/24 History metFORMIN HCL [Glucophage] 500 mg PO BID 06/30/24 06/30/24 History Aspirin 81 mg PO DAILY 30 Days #30 tab 07/01/24 Rx Empagliflozin [Jardiance] 10 mg PO DAILY 30 Days #30 tablet 07/01/24 Rx Furosemide [Lasix] 40 mg PO BID 30 Days #60 tablet 07/01/24 Rx Metoprolol Tartrate [Lopressor] 50 mg PO BID 30 Days #60 tab 07/01/24 Rx Allergies Allergy/AdvReac Type Severity Reaction Status Date / Time No Known Allergies Allergy Verified 06/30/24 13:08 Physical Exam Vitals: Vital Signs Temp Pulse Pulse Resp BP BP Pulse Ox 07/01/24 04:00 98.4 F 69 18 132/63 93 L 06/30/24 23:00 98.3 F 69 18 117/62 94 L 06/30/24 22:44 66 20 06/30/24 20:52 98.2 F 69 20 126/67 98 06/30/24 18:19 98.0 F 66 20 95 06/30/24 18:18 98.0 F 66 20 142/73 95 06/30/24 14:35 62 22 146/70 94 L 06/30/24 08:50 60 06/30/24 08:39 98 F 63 22 159/68 91 L Intake and Output 06/30/24 07/01/24 07/01/24 22:59 06:59 14:59 Intake Total 405.236 Output Total 600 Balance -194.764 Intake: Intake, IV Titration 65.236 Amount Heparin Sod,Pork in 0.45% 65.236 NaCl 25,000 unit In 0.45 % NaCl 1 250ml.bag @ 12 UNITS/KG/HR 8.328 mls/hr IV .Q24H [facility] Rx#: [id number] Oral 340 Output: Urine 600 Other: Voiding Method Toilet Toilet Urinal Urinal # Voids 2 Weight 69.4 kg 68.4 kg Results 07/01/24 05:20 07/01/24 05:20 Cardiac Enzymes 06/30/24 06/30/24 06/30/24 Range/Units 09:34 09:34 15:07 AST 42 (17-59) U/L Troponin I 0.538 H* 0.406 H* (0.000-0.034) ng/mL 06/30/24 Range/Units 18:47 AST (17-59) U/L Troponin I 0.446 H* (0.000-0.034) ng/mL Coagulation 06/30/24 06/30/24 07/01/24 Range/Units 09:34 18:47 05:20 PT 11.5 11.6 (10.0-12.5) sec APTT 25.9 40.8 H (22.0-30.0) sec CBC 06/30/24 07/01/24 Range/Units 09:34 05:20 WBC 14.57 H 13.60 H (4.50-10.00) 10*3/uL RBC 4.39 L 4.58 (4.40-5.60) 10*6/uL Hgb 13.5 13.8 (13.0-17.0) g/dL Hct 40.0 42.1 (39.6-50.0) % Plt Count 253 263 (140-440) 10*3/uL Comprehensive Metabolic Panel 06/30/24 07/01/24 Range/Units 09:34 05:20 Sodium 141 140 (137-145) mmol/L Potassium 4.2 3.8 (3.5-5.1) mmol/L Chloride 102 96 L (98-107) mmol/L Carbon Dioxide 24 32 H (22-30) mmol/L BUN 22 H 31 H (9-20) mg/dL Creatinine 0.67 1.03 (0.66-1.25) mg/dL Glucose 138 H 122 H (74-99) mg/dL Calcium 9.6 9.6 (8.4-10.2) mg/dL AST 42 (17-59) U/L ALT 40 (4-49) U/L Alkaline Phosphatase 127 H (38-126) U/L Total Protein 7.3 (6.3-8.2) g/dL Albumin 3.9 (3.5-5.0) g/dL Current Medications Generic Name Dose Route Start Last Admin Trade Name Freq PRN Reason Stop Dose Admin Acetaminophen 650 mg 06/30/24 13:36 Acetaminophen Tab 325 Mg Tab PO Q6H PRN Pain Albuterol Sulfate 2.5 mg 06/30/24 13:36 Albuterol Nebulized 2.5 Mg/3 Ml INHALATION RT-QID PRN Shortness Of Breath Aspirin 81 mg 07/01/24 09:00 Aspirin 81 Mg PO DAILY [facility] Atorvastatin Calcium 80 mg 07/01/24 09:00 Atorvastatin 80 Mg Tab PO DAILY [facility] Budesonide/Formoterol Fumarate 2 puff 07/01/24 08:00 Symbicort 160-4.5 Mcg Inhaler INHALATION RT-BID [facility] Calcium Polycarbophil 625 mg 06/30/24 21:00 06/30/24 22:13 Calcium Polycarbophil 625 Mg Tab PO 625 mg BID OL Administration Clopidogrel Bisulfate 75 mg 07/01/24 09:00 Clopidogrel 75 Mg Tab PO DAILY LO Furosemide 40 mg 06/30/24 21:00 06/30/24 21:55 Furosemide 10 Mg/Ml 4 Ml Vial IV 40 mg Q12HR LO Administration Heparin Sodium (Porcine) 0 unit 06/30/24 12:28 Heparin Sodium 1,000 Un/Ml (10ml Vl) IV PER PROTOCOL PRN Low PTT Protocol Hydrochlorothiazide 50 mg 07/01/24 09:00 Hydrochlorothiazide 50 Mg Tab PO DAILY [facility] Heparin Sodium/Sodium Chloride 250 mls @ 8.328 mls/hr 06/30/24 12:30 06/30/24 20:49 25,000 unit/ Sodium Chloride IV 12 units/kg/hr .Q24H LO 8.328 mls/hr Titration Protocol 12 UNITS/KG/HR Isosorbide Mononitrate 30 mg 07/01/24 09:00 Isosorbide Mononitrate Er 30 Mg Tab.Er.24h PO DAILY LO Losartan Potassium 50 mg 06/30/24 21:00 06/30/24 21:55 Losartan 50 Mg Tab PO 50 mg BID LO Administration Metoprolol Tartrate 50 mg 06/30/24 21:00 06/30/24 21:55 Metoprolol Tartrate 50 Mg Tab PO 50 mg BID LO Administration Multivitamins 1 each 07/01/24 09:00 Multivitamins, Thera 1 Each Tab PO DAILY [facility] Naloxone HCl 0.2 mg 06/30/24 12:21 Naloxone 0.4 Mg/Ml 1 Ml Vial IV Q2M PRN Opioid Reversal Tamsulosin HCl 0.4 mg 07/01/24 09:00 Tamsulosin 0.4 Mg Cap.Er.24h PO DAILY [facility] Intake and Output 06/30/24 07/01/24 07/01/24 22:59 06:59 14:59 Intake Total 405.236 Output Total 600 Balance -194.764 Intake: Intake, IV Titration 65.236 Amount Heparin Sod,Pork in 0.45% 65.236 NaCl 25,000 unit In 0.45 % NaCl 1 250ml.bag @ 12 UNITS/KG/HR 8.328 mls/hr IV .Q24H [facility] Rx#: [id number] Oral 340 Output: Urine 600 Other: Voiding Method Toilet Toilet Urinal Urinal # Voids 2 Weight 69.4 kg 68.4 kg 07/01/24 05:20 07/01/24 05:20
== END 2024-07-01 13:23 | disposition home or self-care (01) ==
LOC: EC 08:29 → INTOOBSV 12:27 → 3SCARD 12:27
PROVIDERS: ADMIT Student in an Organized Health Care Education/Training Program; ATTEND Student in an Organized Health Care Education/Training Program
DX: F41.0 Panic disorder [episodic paroxysmal anxiety] (principal); R79.89 Other specified abnormal findings of blood chemistry; I11.0 Hypertensive heart disease with heart failure; I50.33 Acute on chronic diastolic (congestive) heart failure; I27.20 Pulmonary hypertension, unspecified; I25.10 Atherosclerotic heart disease of native coronary artery without angina pectoris; I08.3 Combined rheumatic disorders of mitral, aortic and tricuspid valves; J44.9 Chronic obstructive pulmonary disease, unspecified; D72.829 Elevated white blood cell count, unspecified; E11.9 Type 2 diabetes mellitus without complications; E78.5 Hyperlipidemia, unspecified; Z79.51 Long term (current) use of inhaled steroids; Z79.02 Long term (current) use of antithrombotics/antiplatelets; Z79.84 Long term (current) use of oral hypoglycemic drugs; Z79.899 Other long term (current) drug therapy; Z98.61 Coronary angioplasty status
CPT/HCPCS: 96376; 96366 ×3; 96368; 96365; 96375; 99291; 36415; 94640; 93005; 93306; 85379; 83880; 80053; 80048; 83735 ×2; 84484; 85025 ×2; 85610 ×2; 85730 ×2; 87636; 71046; 71275; G0378 ×2; J1644 ×2; J3475; Q9967; J1938